=== PATIENT | female | born 1965 | race Caucasian/White ===

== ENCOUNTER → 2021-01-09 | Outpatient (CLI) | payer OTHER ==
[~2021-01-09] MED LIST: ASPIRIN EC325 MG PO; CELEBREX 200MG200 MG PO; DICLOFENAC SODIUM TOP; ELIQUIS 2.5 MG2.5 MG PO; ENDOCET 7.5-321 EACH PO; ESTRACE2 MG PO; FLEXERIL 10 MG10 MG PO; HYDROCHLOROTHIA50 MG PO; LIDOCAINE TP; LOPRESSOR100 MG PO; LOSARTAN POTASS50 MG PO; MECLIZINE HCL25 MG PO; NORETHINDRONE AC5 MG PO; ONE A DAY VITAMIN PO; PERCOCET 10-321 EACH PO; POTASSIUM CHLO10 ME2 PO; SYNTHROID 137137 MCG PO; SYNTHROID100 MCG PO; TYLENOL EXTRA500 MG PO; ULTRAM50 MG PO; VOLTAREN100 GM TP
[2021-01-09 08:44] LABS: HEMOGLOBIN 12.4 gm/dl (12.3-15.3); RED BLOOD COUNT 3.96 M/UL (4.00-5.10)
[2021-01-09 09:02] LABS: BUN/CREATININE RATIO 17 (0-10)
== END ==
LOC: OPSV2 07:30 → EDSTATUS 07:30 → OPSV2 07:45
PROVIDERS: Orthopaedic Surgery
DX: Z01.812 Encounter for preprocedural laboratory examination (principal); Z01.810 Encounter for preprocedural cardiovascular examination; M17.12 Unilateral primary osteoarthritis, left knee; I10 Essential (primary) hypertension
CPT/HCPCS: 36415; 80048; 85027; 87081; 93005

== ENCOUNTER → 2021-01-21 | Outpatient (CLI) | payer OTHER | LOC: LAB 09:41 | DX: Z01.812 Encounter for preprocedural laboratory examination (principal); M17.12 Unilateral primary osteoarthritis, left knee; I10 Essential (primary) hypertension; Z79.899 Other long term (current) drug therapy | CPT/HCPCS: 36415; 80051; 82565; 84520; 86850; 86900; 86901 ==

== ENCOUNTER 2021-01-22 06:14 | Day surgery (SDC) | payer OTHER ==
[~2021-01-22] VITALS: Ht 172.7 cm; Wt 107.0 kg
[~2021-01-22 06:14] MED LIST changes: -ASPIRIN EC325 MG PO; -ENDOCET 7.5-321 EACH PO
[2021-01-22] MEDS ORDERED: ASPIRIN EC325 MG PO (08:31)
[2021-01-22] MEDS ORDERED: ENDOCET 7.5-321 EACH PO (08:31)
[2021-01-23 03:44] LABS: HEMOGLOBIN 10.3 gm/dl (12.3-15.3); RED BLOOD COUNT 3.33 M/UL (4.00-5.10); WHITE BLOOD COUNT 9.8 K/UL (4.5-11.0)
[2021-01-23 04:01] LABS: BUN/CREATININE RATIO 16 (0-10)
--- NOTE | 2021-01-23 11:21 | NUR ---
INSTRUCTED PATIENT ON MEDS AT PHARMACY, OUT PATIENT SCRIPT FOR PHYSICAL THERAPY, PER PATIENT REQUEST. VERBALIZED UNDERSTANDING SHARITA JC R.N.
== END 2021-01-23 11:35 | disposition home or self-care (01) ==
LOC: OR 06:14 → M/S 11:49 → OR 14:00
PROVIDERS: Orthopaedic Surgery
DX: M17.12 Unilateral primary osteoarthritis, left knee (principal); I10 Essential (primary) hypertension; E07.9 Disorder of thyroid, unspecified; E66.9 Obesity, unspecified; Z82.61 Family history of arthritis; Z88.1 Allergy status to other antibiotic agents; Z96.652 Presence of left artificial knee joint
CPT/HCPCS: 36415; 73560; 80048; 85027; 97116-GP-CQ; 97162; 97166; 97535; C1776; J0171; J0690; J1100; J1170; J1885; J2001; J2250; J2405; J2704; J2710; J2795; J3010; J3370